=== PATIENT | male | born 1995 | race Hispanic/Latino ===

== ENCOUNTER 2019-11-29 17:55 | Emergency (ER) | payer SELFPAY ==
[2019-11-29] MEDS ORDERED: CYCLOBENZAPRINE 10 MG TAB ONE (19:37)
[2019-11-29] MEDS ORDERED: KETOROLAC 30 MG/ML INJ ONE (19:38)
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
[2019-11-29 20:26] LABS: Urine Blood 1+ (NEG); Urine Glucose NEGATIVE (NEG); Urine Protein 1+ (NEG); Urine Specific Gravity >1.030 (1.005-1.030)
[2019-11-29 20:38] LABS: Urine Bacteria <20 /HPF (NONE SEEN); Urine Culture Reflex Order NOT NEEDED; Urine Mucus 1+ /HPF (NONE SEEN); Urine Sperm PRESENT (NONE SEEN)
[2019-11-29 21:23] VITALS: BP 110/75; TEMP 98.7; O2SAT 99
== END 2019-11-29 20:27 | disposition home or self-care (01) ==
LOC: ER 17:55
DX: M54.5 Low back pain (principal); V43.52XA Car driver injured in collision with other type car in traffic accident, initial encounter; Z88.1 Allergy status to other antibiotic agents
CPT/HCPCS: 81003; 81015; 96372; 99283